=== PATIENT | female | born 1950 | race African-American/Black ===

== ENCOUNTER 2023-12-29 15:53 | Emergency (ER) | payer OTHER ==
[2023-12-29 16:06] VITALS: BP 156/78; PULSE 84; RESP 18; TEMP 98.6; BMI 16.9
[2023-12-29] MEDS ORDERED: ACETAMINOPHEN INJECTION 100 ML ONE (17:59)
[2023-12-29] MEDS: ACETAMINOPHEN 1000 MG/100 ML BAG IVPB ONE (18:18)
[2023-12-29 18:21] LABS: BASO % 0.5 % (0-2.0); EOS % 0.2 % (0-4.5); HEMATOCRIT 35.8 % (32.4-45.2); HEMOGLOBIN 11.9 GM/dL (10.7-15.3); LYMPH % 20.7 % (8-40); MCH 29.5 pg (25.7-33.7); MCHC 33.3 g/dl (32.0-36.0); MEAN CELL VOLUME 88.5 fl (80-96); MEAN PLT VOLUME 7.6 fl (7.5-11.1); MONO % 7.7 % (3.8-10.2); NEUT % 70.9 % (42.8-82.8); PLATELET COUNT 225 10^3/uL (134-434); RBC 4.05 M/mm3 (3.60-5.2); RDW 13.4 % (11.6-15.6); WHITE BLOOD COUNT 4.7 K/mm3 (4.0-10.0)
[2023-12-29 18:33] LABS: POTASSIUM 4.4 mmol/L (3.5-5.1)
[2023-12-29 18:34] LABS: CALCIUM 10.3 mg/dL (8.5-10.1)
[2023-12-29 18:35] LABS: ALBUMIN 4.1 g/dl (3.4-5.0); BLOOD UREA NITROGEN 19.8 mg/dL (7-18)
[2023-12-29 18:40] LABS: BILIRUBIN,TOTAL 0.4 mg/dL (0.2-1); TOT PROT 8.1 g/dl (6.4-8.2)
[2023-12-29] MEDS ORDERED: AMOX TR/POT CLAV 875MG/125MG TABLETS (FP) ONE (20:51)
[2023-12-29] MEDS: AMOX TR/POT CLAV 875MG/125MG TABLETS (FP) PO ONE (20:57)
== END 2023-12-29 21:04 | disposition home or self-care (01) ==
LOC: JERFT 15:53 → JER 15:53 → JERFT 21:04
PROC: 3E033NZ Introduction of Analgesics, Hypnotics, Sedatives into Peripheral Vein, Percutaneous Approach (ICD-10-PCS; principal; 2023-12-29)
DX: K05.6 Periodontal disease, unspecified (principal); K08.89 Other specified disorders of teeth and supporting structures
CPT/HCPCS: 36415; 70487-TC; 80053; 85025; 96374; 99285-25; J0131